=== PATIENT | female | born 1945 | race Caucasian/White ===

== ENCOUNTER 2016-04-13 16:28 | Outpatient (CLI) ==
--- NOTE | 2016-04-14 07:06 | DI ---
EXAM: THORACIC SPINE HISTORY: Chronic back pain FINDINGS: Thoracic spine three-view. Bone density is within normal limits. There is mild scoliosis convex to the left minimally involving the lower thoracic level, mainly the upper lumbar. See also same day lumbar radiography report. No degenerative disc disease or loss of vertebral body height. No fracture. Incidental note of a aortic atherosclerosis and hyperinflation of the lungs. IMPRESSION: Subtle scoliosis near the thoracolumbar junction. Otherwise the thoracic spine is withi n normal limits.
--- NOTE | 2016-04-14 07:28 | DI ---
EXAM: Lumbar spine three views HISTORY: Chronic back pain FINDINGS: Compared to 07/17/2013. Bone density appears decreased. There is mild scoliosis which i s stable. Sacroiliac joints reveal minimal arthropathy probably greater on the right. Lateral proj ections reveal slight reversal of lordosis at the upper lumbar level. No spondylolisthesis or loss of vertebral body height. Moderate degenerative disc disease at L2/L3. Moderate facet arthropathy L5/S1. IMPRESSION: Mild demineralization and scoliosis. Degenerative changes most noted at L2/L3 and L5/S1 .
== END 2016-04-13 16:29 | disposition home or self-care (01) ==
LOC: RAD 16:28
PROVIDERS: ATTEND Specialist
DX: M54.5 Low back pain (principal); G89.29 Other chronic pain; C50.912 Malignant neoplasm of unspecified site of left female breast

== ENCOUNTER 2017-02-18 06:34 | Outpatient (CLI) | payer OTHER ==
--- NOTE | 2017-02-22 10:29 | ECHO2D ---
Date of Exam: 02/18/17 Ordering Physician: BRUNILDA ANDINO Room #: OP Reason for Echo: SOB, PERICARDIAL METASTATIC STUDDING M-Mode Normal Adult Results LV Dimensions Normal Adult Results AoV Opening excursions >1.6 >1.6 LVEDD-base- 3.5-5.8 4.1 Ao root dimensions 2.0-3.7 2.9 LVESD-base- 3.1-4.6 L. Atrium dimensions 1.9-3.8 3.5 Post. Wall thickness 0.8-1.1 1.1 IV septum (thickness) 0.7-1.2 1.1 Post. Wall excursion 0.72-1.3 NORMAL Septal motion NORMAL Systolic motion R. Ventricular cavity 1.5-2.0 NORMAL LVEF 60% 70% Paradoxical septal wall motion NORMAL 2-D : 2-D M Mode Echocardiogram was performed using apical four chamber and left parasternal long and short axis views. Mitral, tricuspid and aortic valves appear to be normal. Contractility of the left ventricle seems to be normal, so is the cavity size. Left atrial cavity size and aortic root appear to be normal. There is no pericardial effusion. There is no thrombus noted in the left ventricular or left aortic cavity. No mitral valve prolapse noted. M-MODE: MV: NORMAL AV: NORMAL TV: NORMAL PV: CHAMBER SIZE: NORMAL WALL MOTION: NORMAL PERICARDIUM: NORMAL INTERPRETATION: 1. NO PERICARDIAL EFFUSION 2. NORMAL LEFT VENTRICULAR CONTRACTILITY WITH NORMAL EJECTION FRACTION 3. NORMAL VALVES MTDD
== END 2017-02-18 06:35 | disposition home or self-care (01) ==
LOC: CAR 06:34
PROVIDERS: ATTEND Internal Medicine
DX: R06.02 Shortness of breath (principal)